=== PATIENT | female | born 2000 | race Caucasian/White ===

== ENCOUNTER 2019-09-13 13:30 | Emergency (ER) | payer SELFPAY ==
--- NOTE | 2019-09-13 14:02 | EDM.PDOC ---
ED HPI GENERAL MEDICAL PROBLEM - General Chief Complaint: Upper Extremity Injury/Pain Stated Complaint: RT WRIST PAIN Time Seen by Provider: 09/13/19 13:33 - History of Present Illness INITIAL COMMENTS - FREE TEXT/NARRATIVE: 18-year-old female presenting with moderate right wrist pain. Patient reports that she noticed it when she woke up yesterday morning. Some moderate pain primarily at the base of the right thumb that sometimes radiates down into the muscles of the forearm. Worsens with pinching adamantly denies any injury no pain in any other part of the wrist. Patient took 1 800 mg ibuprofen yesterday at noon and that "it did nothing for the pain." No other associated symptoms. Denies prior history of wrist injury surgery denies other medical problems beyond taking levothyroxine. - Related Data Allergies Allergy/AdvReac Type Severity Reaction Status Date / Time No Known Allergies Allergy Verified 09/13/19 13:53 Home Meds: Home Meds Levothyroxine [Synthroid] 100 mcg PO ACBREAKFAST 09/13/19 [History] Review of Systems - Review of Systems Review Of Systems: See Below Constitutional: Reports: No Symptoms Eyes: Reports: No Symptoms Mouth/Throat: Reports: No Symptoms Respiratory: Reports: No Symptoms Cardiovascular: Reports: No Symptoms Musculoskeletal: Reports: Other (Wrist pain as noted in HPI) Skin: Reports: No Symptoms ED EXAM, GENERAL - Physical Exam Exam: See Below Free Text/Narrative:: General Appearance: No acute distress, appears comfortable HEENT: Normocephalic/atraumatic, sclera anicteric, mucous membranes moist Neck: Normal range of motion Musculoskeletal: 2+ DP pulse median radial and ulnar nerve intact in the right hand no focal bony tenderness is noted in the digits the hand the wrist or the elbow patient endorses that the discomfort is primarily at the base of the th enar eminence with some radiation into the forearm with pinching. No focal tenderness no skin changes no swelling no limitation in range of motion strength in the wrist is 5 out of 5 in pronation supination flexion extension and radial and ulnar deviation strength in the digits is 5 out of 5 in flexion and extension. Strength of the thumb likewise 5 out of 5. Neurologic: Awake, alert, no obvious deficits, moving all extremities Psychiatric: Appropriate, cooperative Departure - Departure Time of Disposition: 13:56 Disposition: Home, Self-Care 01 Condition: Good Clinical Impression: Wrist strain - Discharge Information *PRESCRIPTION DRUG MONITORING PROGRAM REVIEWED*: Not Applicable *COPY OF PRESCRIPTION DRUG MONITORING REPORT IN PATIENT LOURDES: Not Applicable Instructions: Tendinitis, [id number] Referrals: [facility] [Outside] Additional Instructions: I recommend that you take 800 mg of ibuprofen every 8 hours with food for the next 5 days. Hopeful that your symptoms are gradually improved. However, if they get worse I encourage you to follow-up with either the primary care clinic or the orthopedic doctor. If you have a sudden worsening of your symptoms or new symptoms that concern you develop I encourage you to return to the emergency department. [facility] [address], [address] [place] [address] The following information is given to patients seen in the emergency department who are being discharged to home. This information is to outline your options for follow-up care. We provide all patients seen in our emergency department with a follow-up referral. The need for follow-up, as well as the timing and circumstances, are variable depending upon the specifics of your emergency department visit. If you don't have a primary care physician on staff, we will provide you with a referral. We always advise you to contact your personal physician following an emergency department visit to inform them of the circumstance of the visit and for follow-up with them and/or the need for any referrals to a consulting specialist. The emergency department will also refer you to a specialist when appropriate. This referral assures that you have the opportunity for follow-up care with a specialist. All of these measure are taken in an effort to provide you with optimal care, which includes your follow-up. Under all circumstances we always encourage you to contact your private physician who remains a resource for coordinating your care. When calling for follow-up care, please make the office aware that this follow-up is from your recent emergency room visit. If for any reason you are refused follow-up, please contact the [facility] Emergency Department at and asked to speak to the emergency department charge nurse. - Assessment/Plan Assessment:: 18-year-old female presenting with right wrist pain as described. Given absence of trauma and absence of any focal bony tenderness I do not think x-ray is indicated. I suspect mild tendinitis or wrist or thumb strain to be the most likely cause of her symptoms. There is no findings that would suggest gout such as erythema skin tenderness or swelling of the wrist joint. No mechanism that would suggest fracture no history of repetitive use or tingling that would suggest carpal tunnel. Recommended 5 days of ibuprofen 800 mg with food 3 times daily and follow-up with the [facility] clinic and/or the orthopedic clinic. Return precautions discussed and understood as well.
== END 2019-09-13 14:15 | disposition home or self-care (01) ==
LOC: MW.ED 13:30
DX: S66.911A Strain of unspecified muscle, fascia and tendon at wrist and hand level, right hand, initial encounter (principal); X58.XXXA Exposure to other specified factors, initial encounter
CPT/HCPCS: 99283